=== PATIENT | male | born 1960 | race Caucasian/White ===

== ENCOUNTER 2017-06-11 18:33 | Emergency (ER) | payer SELFPAY ==
[~2017-06-11] VITALS: Ht 175.3 cm; Wt 68.0 kg
--- NOTE | 2017-06-11 19:17 | NUR ---
PT IN BED. HE HAS SEVERAL JUDAISM BOOKS IN BED WITH HIM. HE CURRENTLY READING THE [employer]. HIS APPEARANCE IS DISHEVELED AND UNKEMPT. C/O GENERALIZED BODY PAIN 10/22. PT UNABLE TO PROVIDE ONSET OF PAIN TIMELINE.
--- NOTE | 2017-06-11 19:30 | NUR ---
Patient discharged to home in stable conditon. Written and verbal after care instructions given. Patient verbalizes understanding of instructions.
[2017-06-11 19:52] VITALS: BP 118/74
== END 2017-06-11 19:30 | disposition home or self-care (01) ==
LOC: ER 18:34
DX: Z00.00 Encounter for general adult medical examination without abnormal findings (principal); F12.90 Cannabis use, unspecified, uncomplicated; F17.210 Nicotine dependence, cigarettes, uncomplicated; Z59.0 Homelessness
CPT/HCPCS: A4663